=== PATIENT | female | born 1945 | race Caucasian/White ===

== ENCOUNTER → 2016-11-30 | Day surgery (SDC) | payer OTHER ==
[2016-11-30 11:50] LABS: HCT 44.5 % (37.0-47.0); HGB 14.8 g/dl (12.5-16.0); MCH 31.4 pg (25.0-31.0); MCHC 33.3 g/dL (32.0-36.0); MCV 94.5 fL (78.0-100.0); MPV 10.6 fL (6.0-9.5); RBC 4.71 M/uL (4.20-5.40); RDW 14.1 % (11.5-14.0); WBC 6.4 K/uL (4.0-10.5)
[2016-11-30 12:10] LABS: ALBUMIN 4.1 g/dL (3.4-4.8); BILIRUBIN - TOTAL 0.5 mg/dL (0.1-1.0); CREATININE 0.5 mg/dL (0.5-1.0); GLOBULIN (CALCULATION) 3.1 g/dL (2.2-4.2); TOTAL PROTEIN 7.2 g/dL (6.4-8.3)
[2016-11-30 12:15] LABS: INR 0.99 (0.9-1.2); PROTHROMBIN TIME 12.7 SECONDS (11.7-14.0); PTT 30.5 SECONDS (23.2-31.4)
== END | disposition home or self-care (01) ==
LOC: FAS 10:56
PROVIDERS: Surgery
DX: K80.10 Calculus of gallbladder with chronic cholecystitis without obstruction (principal); K76.0 Fatty (change of) liver, not elsewhere classified; E78.00 Pure hypercholesterolemia, unspecified; E78.5 Hyperlipidemia, unspecified; I10 Essential (primary) hypertension; F17.210 Nicotine dependence, cigarettes, uncomplicated; M19.90 Unspecified osteoarthritis, unspecified site; Z96.643 Presence of artificial hip joint, bilateral; Z85.42 Personal history of malignant neoplasm of other parts of uterus; Z82.49 Family history of ischemic heart disease and other diseases of the circulatory system; Z80.8 Family history of malignant neoplasm of other organs or systems; Z79.82 Long term (current) use of aspirin; Z79.899 Other long term (current) drug therapy; Z98.890 Other specified postprocedural states
CPT/HCPCS: 36415; 71010; 74300; 80053; 85610; 85730; 88313; 93005; J1170; J2405; J2704; J2710; J3010; Q9962